=== PATIENT | female | born 1955 | race Caucasian/White ===

== ENCOUNTER 2017-09-16 07:57 | Emergency (ER) | payer OTHER ==
[~2017-09-16] VITALS: Ht 160 cm; Wt 61.2 kg
[~2017-09-16 07:57] MED LIST: ATOM60CA PO; BUPR-79 PO; CHOL20007 PO; CTP/1 PO; ESCI1TAB10 PO; FENO145T26 PO; LEVO25TA5 PO; MELATAB2 PO; METH10TA4 PO; METH5TAB4 PO; OMEG10007 PO; OMEP40CA41 PO; SIMV40TA2 PO; TRIA37.5 PO
[2017-09-16 08:02] VITALS: TEMP 36.5; Ht 160 cm; Wt 61.2 kg
[2017-09-16] MEDS ORDERED: MILK AND MOLASSES ENEMA PR ONE (08:45)
[2017-09-16] MEDS ORDERED: VTME100 PO (10:01)
[2017-09-16] MEDS ORDERED: B-COTAB18 PO (10:01)
[2017-09-16] MEDS ORDERED: MELA5TAB19 PO (10:01)
--- NOTE | 2017-09-16 10:02 | EMERGENCY ROOM VISIT NOTE ---
History Report prepared by Jerson: Amber Wheeler Under the Supervision of: Dr. Frandy Mckinnon D.O. First contact with patient: 08:14 Chief Complaint: CONSTIPATION Stated Complaint: BOWEL IMPACTION History of Present Illness The patient is a 62 year old female who presents to the Emergency Room with complaints of constant constipation for the past month. The patient states that she has had a bowel blockage for the past month and has only been moving her bowels about once a week. Yesterday she felt like she needed to have a bowel movement but waited until she got home from work to try to have one. At that time she was unable to pass any stool. She tried using a soap suds enema without any relief. The patient states that now she has a blockage near her rectum. She reports pressure and pain in her rectum. She rates her pain as a 10/ 10 in severity. She also states that she has been unable to urinate this morning. 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 Review of Systems See HPI for pertinent positives & negatives. A total of 10 systems reviewed and were otherwise negative. Past Medical & Surgical Medical Problems: (1) Essential (Primary) Hypertension (2) Major Depressive Disorder, Single Episode, Unspecified (3) Radiculopathy, Lumbar Region (4) Radiculopathy, Lumbar Region Family History No pertinent history stated. Social History Smoking Status: Never Smoker Marital Status: in relationship Occupation Status: employed Current/Historical Medications Scheduled Atomoxetine (Strattera), 60 MG PO DAILY Bupropion (Wellbutrin Sr), 150 MG PO DAILY Cholecalciferol (Vitamin D3), 5,000 UNITS PO DAILY Clonidine Hcl (Catapres), 1 TAB PO HS Escitalopram Oxalate (Lexapro), 20 MG PO DAILY Fenofibrate (Tricor ), 145 MG PO DAILY Fish Oil (Sondheimer-3), 1 CAP PO DAILY Levothyroxine Sodium (Levothyroxine Sodium), 1 TAB PO DAILY Melatonin (Melatonin Maximum Strengt), 1 TAB PO HS Methylphenidate (Ritalin), 10 MG PO DAILY Methylphenidate (Ritalin), 5 MG PO noon Omeprazole (Prilosec), 40 MG PO DAILY Simvastatin (Zocor), 40 MG PO QPM Triamterene/Hctz (Dyazide 37.5MG/25MG), 1 CAP PO DAILY Allergies Coded Allergies: No Known Allergies (Unverified , 05/12/17) Physical Exam Vital Signs Date Time Temp Pulse Resp B/P (MAP) Pulse Ox O2 Delivery O2 Flow Rate FiO2 09/16/17 08:02 36.5 103 18 125/84 99 Room Air Physical Exam CONSTITUTIONAL/VITAL SIGNS: Reviewed / noted above. GENERAL: Non-toxic in appearance. INTEGUMENTARY: Warm, dry, and [place]. HEAD: Normocephalic. EYES: without scleral icterus or trauma. ENT/OROPHARYNX: clear and moist. LYMPHADENOPATHY/NECK: Is supple without lymphadenopathy or meningismus. RESPIRATORY: Lungs clear and equal. CARDIOVASCULAR: Regular rate and rhythm. GI/ABDOMEN: Soft and nontender. No organomegaly or pulsatile mass. No rebound or guarding. Normal bowel sounds. RECTAL: Soft stool in rectal vault, unable to disimpact manually. EXTREMITIES: Warm and well perfused. BACK: No CVA tenderness. NEUROLOGICAL: Intact without focal deficits. PSYCHIATRIC: normal affect. MUSCULOSKELETAL: Normally developed with good muscle tone. Medical Decision & Procedures Medications Administered Medications (Trade) Dose Ordered Sig/Emily Route Start Time Stop Time Status Last Admin Dose Admin Miscellaneous Medication (Milk And Molasses Enema) 1 ea ONE ONCE WA 09/16/17 08:45 09/16/17 08:46 DC 09/16/17 09:05 1 EA ED Course 0814: Previous medical records were reviewed. The patient was evaluated in room B6. A complete history and physical examination was performed. 0845: Milk and Molasses enema WA 0941: I reassessed the patient at this time. She is feeling better and resting comfortably. She had a bowel movement after the enema. I discussed the results and treatment plan with the patient. I answered all pertaining questions that she had. She expressed understanding and verbalized agreement. The patient will be discharged home. Medical Decision Differential considered: pancreatitis, hepatitis, or acute cholecystitis, AAA, UTI, pyelonephritis, kidney stones, appendicitis, diverticulitis, shingles, bowel obstruction mesenteric ischemia, intussusception, hernia, ovarian torsion , ruptured ovarian cyst. This is a 62-year-old female who presents to the ED with a chief complaint of constipation. The patient states that she has not had a bowel movement for about a week. She feels like the stool is near her rectum but she is unable to push it out. She attempted a enema last night but it did not help. Exam as noted above. Milk of molasses enema was provided today. The patient had a good bowel movement and is feeling better. She was felt to be stable for discharge. Medication Reconcilliation Current Medication List: was personally reviewed by me Blood Pressure Screening Patient's blood pressure: Normal blood pressure Impression Primary Impression: Constipation Scribe Attestation The scribe's documentation has been prepared under my direction and personally reviewed by me in its entirety. I confirm that the note above accurately reflects all work, treatment, procedures, and medical decision making performed by me. Departure Information Dispostion Home / Self-Care Referrals Len Bishop M.D. (PCP) Patient Instructions My [facility]
[2017-09-16 10:17] VITALS: BP 122/76; PULSE 76; O2SAT 99
== END 2017-09-16 10:17 | disposition home or self-care (01) ==
LOC: C.EDB 07:58
DX: K59.00 Constipation, unspecified (principal); I10 Essential (primary) hypertension; F32.9 Major depressive disorder, single episode, unspecified; Z87.39 Personal history of other diseases of the musculoskeletal system and connective tissue